=== PATIENT | female | born 1990 | race Caucasian/White ===

== ENCOUNTER 2017-08-30 22:56 | Inpatient (IN) | payer OTHER ==
[~2017-08-30] VITALS: Ht 180.3 cm; Wt 54.4 kg
[2017-08-30] MEDS ORDERED: IBUPROFEN 600 MG TABLET PO PRN (23:00)
[2017-08-30] MEDS ORDERED: CLONIDINE HCL 0.1 MG TABLET PO PRN (23:00)
[2017-08-30] MEDS ORDERED: LORAZEPAM 2 MG/1 ML VIAL IM PRN (23:00)
[2017-08-30] MEDS ORDERED: MAGNESIUM HYDROXIDE 30 ML LIQUID UDC PO PRN (23:00)
[2017-08-30] MEDS ORDERED: LOPERAMIDE HCL 2 MG CAPSULE PO PRN ×2 (23:00)
[2017-08-30] MEDS ORDERED: diphenhydrAMINE 50 MG CAPSULE PO PRN (23:00)
[2017-08-30] MEDS ORDERED: MAG HYDROX/AL HYDROX/SIMETH 30 ML LIQUID UDC PO PRN (23:00)
[2017-08-30] MEDS ORDERED: ACETAMINOPHEN 325 MG TABLET PO PRN (23:00)
[2017-08-30] MEDS ORDERED: THIAMINE HCL 200 MG/2 ML VIAL IM ONE (23:00)
[2017-08-30] MEDS ORDERED: LORAZEPAM 1 MG TABLET PO PRN (23:00)
[2017-08-30] MEDS ORDERED: ONDANSETRON 4 MG/2 ML VIAL IM PRN (23:00)
[2017-08-30] MEDS ORDERED: MIRALAX 17 GM POWD.PACK PO PRN (23:00)
[2017-08-30 23:20] VITALS: BP 109/62
--- NOTE | 2017-08-30 23:20 | NUR ---
INTAKE ASSESSMENT PATIENT ALERT AND ORIENTED X 4. SPEECH IS CLEAR AND ANSWER QUESTIONS APPROPRIATELY. DENIES ANY PAIN. VS BP- 109/62 T-97.5 P-95 R-18 SpO2-97% IN RA. PATIENT DOES NOT HAVE ALLERGY. NO SEIZURE HISTORY. PATIENT STATES SHE'S HERE FOR ALCOHOL. SHE ADMITTED USING COCAINE FOR 2 DAYS. WILL CONTINUE ADMISSION ON 3RD FLOOR.
--- NOTE | 2017-08-30 23:25 | NUR ---
ADMISSION NOTE PATIENT IS A 26 YEAR OLD FEMALE WHO PRESENTS TO [facility] FOR SUPERVISED WITHDRAWAL FROM ETOH DEPENDENCE. BODY CHECK DONE, PATIENT HAD SCRATCH ON RIGHT CHIN, NO BLEEDING OTHERWISE SKIN CLEAR AND INTACT. LUNGS CLEAR AND ABDOMEN SOFT AND NON -DISTENDED. BOWEL SOUNDS CLEAR ON ALL QUADRANT. PATIENT HAD BOWEL MOVEMENT TODAY. NO DIFFICULTY WHILE URINATING. PATIENT REQUESTED TO BE FULL CODE AND ON REGULAR DIET. PATIENT IS UNEMPLOYED, LIVES ALONE WITH HER FAMILY HER SUPPORT SYSTEM. PATIENT'S PCP IS DR. AMARO IN [place]. PATIENT DENIES PAST MEDICAL HISTORY. PATIENT STATES SHE RELAPSED 2 WEEKS AGO. PATIENT'S DRUG OF CHOICE ARE: 1.ALCOHOL- STARTED DRINKING AT AGE 14. PATIENT ALTERNATES BETWEEN 12 BOTTLES OF BEER OR 2 BOTTLES OF WINE (RED AND WHITE ) OR 2 BOTTLES OF VODKA DAILY FOR 2 WEEKS. LAST DRINK WAS 1 BOTTLE OF [place] BEFORE ADMISSION 2.COCAINE- STARTED USING FOR 2 DAYS. PATIENT STATES SHE HAD 1-2 LINES . SHE HAD IT LAST NIGHT AND BEFORE ADMISSION. TREATMENT HISTORY: 1. [facility]-A MONTH 2.[facility] - 2 WEEKS 3.[facility]- LAST NIGHT 08/29/17- GOT SICK USING COCAINE FOR THE FIRST TIME PATIENT REPORTS NAUSEA NO EMESIS, APPEARS TO BE ANXIOUS. CIWA 4. PATIENT DENIES SI/HI. PATIENT DOES NOT HAVE HOME MEDS. PATIENT AGREED TO HAVE FLU AND PNEUMONIA VACCINE. PATIENT WAS PLACED ON FALL/SEIZURE PRECAUTION. PATIENT ORIENTED TO SURROUNDINGS AND HOW TO USE CALL LIGHT. SAFETY MEASURES IN PLACE. CALL LIGHT IN REACH. WILL CONTINUE TO MONITOR.
[2017-08-30 23:58] LABS: *URINE HCG, QUAL NEGATIVE (NEGATIVE)
[2017-08-31] MEDS: ONDANSETRON ODT 4 MG TAB.RAPDIS SL PRN ×2 (00:05→11:06)
--- NOTE | 2017-08-31 00:05 | NUR ---
PRN ZOFRAN ADMINISTRATION PATIENT C/O NAUSEA .BUT NO EMESIS. PRN ZOFRAN GIVEN.WILL MONITOR FOR EFFECTIVENESS
[2017-08-31 00:09] LABS: BASOPHILS % (AUTO) 0.3 % (0.0-2.0); EOSINOPHILS % (AUTO) 0.7 % (0.0-7.0); HEMATOCRIT 41.9 % (37-47); HEMOGLOBIN 14.5 G/DL (12.0-16.0); LYMPHOCYTES # (AUTO) 3.2 K/UL (0.8-4.8); LYMPHOCYTES % (AUTO) 57.1 % (20.5-51.5); MEAN CORPUSCULAR HEMOGLOBIN 32.3 UUG (27.0-31.0); MEAN CORPUSCULAR HGB CONC 35 g/dL (32.0-37.0); MEAN CORPUSCULAR VOLUME 93.6 FL (81.0-99.0); MONOCYTES # (AUTO) 0.3 K/UL (0.1-1.30); MONOCYTES % (AUTO) 5.6 % (0.0-11.0); NEUTROPHILS % (AUTO) 36.3 % (38.5-71.5); PLATELET COUNT (AUTO) 162 K/UL (150-450); RED BLOOD CELL COUNT(AUTO) 4.48 MIL/UL (4.2-5.4); WHITE BLOOD COUNT (AUTO) 5.5 K/UL (4.0-11.2)
[2017-08-31 00:14] LABS: *AMPHETAMINE, URINE NEGATIVE (NEGATIVE); *BARBITURATE, URINE NEGATIVE (NEGATIVE); *CANNABINOID, URINE NEGATIVE (NEGATIVE); *COCCAINE, URINE POSITIVE (NEGATIVE); *OPIATE, URINE NEGATIVE (NEGATIVE); *PHENCYCLIDINE SCREEN,URINE NEGATIVE (NEGATIVE)
[2017-08-31] MEDS ORDERED: ONDANSETRON ODT 4 MG TAB.RAPDIS ONE (00:17)
--- NOTE | 2017-08-31 00:35 | NUR ---
PRN ZOFRAN RE-ASSESSMENT PATIENT STATES ZOFRAN EFFECTIVE. NAUSEA CEASED. WILL CONTINUE TO MONITOR
--- NOTE | 2017-08-31 00:44 | NUR ---
THIAMINE IM ADMINISTRATION THIAMINE IM GIVEN ON LEFT DELTOID, TOLERATED WELL, NO ADVERSE REACTION.
[2017-08-31] MEDS ORDERED: THIAMINE HCL 200 MG/2 ML VIAL ONE (00:51)
[2017-08-31 00:54] LABS: BILIRUBIN,TOTAL 0.5 mg/dL (0.2-1.0); CREATININE 0.8 mg/dL (0.6-1.3); MAGNESIUM 1.9 mg/dL (1.8-2.4); POTASSIUM 4.1 mmol/L (3.5-5.1); TOTAL PROTEIN, SERUM 8.5 g/dL (6.4-8.2)
[2017-08-31 04:00] VITALS: BP_SYST 94; BP_SYST 95; BP_DIAS 61; BP_DIAS 62
[2017-08-31] MEDS: LORAZEPAM 1 MG TABLET PO PRN ×2 (04:10→11:06)
--- NOTE | 2017-08-31 04:10 | NUR ---
PRN ATIVAN ADMINISTRATION PATIENT C/O ANXIETY, NOTED RESTLESS, TREMULOUS, SWEATING . CIWA7. PRN ATIVAN GIVEN. WILL MONITOR FOR EFFECTIVENESS
[2017-08-31] MEDS ORDERED: LORAZEPAM 1 MG TABLET ONE (04:23)
--- NOTE | 2017-08-31 05:10 | NUR ---
PRN ATIVAN RE-ASSESSMENT PATIENT STATES ATIVAN HELPFUL. PATIENT LESS ANXIOUS. WILL CONTINUE TO MONITOR CIWA IS NOW 3. WILL CONTINUE TO MONITOR.
--- NOTE | 2017-08-31 07:15 | NUR ---
Start of Shift Endorsement received from nightshift nurse. Pt is a 26 y/o female admitted for alcohol dependence. Pt has not been placed on a taper at this time. Pt's symptoms will be managed by PRN medications until farther evaluation by Dr. Bowen. Pt received PRN Ativan at 0440 for CIWA 7. MRSA was performed upon admission. Pt is tolerating the detox and moderately withdrawing AEB CIWA 3. Pt reports sleeping 6 hours. PT is alert and oriented x4. Pt is in STABLE condition at this time. Remains compliant with medication and diet regimen. All needs have been met, All safety measures in place per hospital policy. Bed in lowest position, side rails up x2, call-light within reach. Will continue to monitor
--- NOTE | 2017-08-31 07:18 | NUR ---
END OF SHIFT NOTE PATIENT IS A 26 YEAR OLD FEMALE NEWLY ADMITTED FOR ETOH DEPENDENCE. PATIENT WAS GIVEN PRN ZOFRAN AND ATIVAN FOR CIWA 7, EFFECTIVE , CIWA WENT DOWN TO 3. . THIAMINE IM GIVEN ON LEFT DELTOID. SLEPT 6 HOURS. FLUID INTAKE 500 ML. VOIDED X 1. NO BM. ON FALL/SEIZURE PRECAUTION. SAFETY MEASURES IN PLACE. CALL LIGHT IN REACH. WILL CONTINUE TO MONITOR. LAST CIWA .
[2017-08-31 08:00] VITALS: BP 92/56
[2017-08-31] MEDS ORDERED: PNEUMOCOCCAL 23-VAL P-SAC VAC 0.5 ML VIAL IM ONE (09:00)
[2017-08-31] MEDS ORDERED: INFLUENZA VACCINE 2017-2018 0.5 ML DISP.SYRIN IM ONE (09:00)
[2017-08-31] MEDS: MULTIVITAMINS,THERAPEUTIC TABLET PO SCH (09:00)
[2017-08-31] MEDS: FOLIC ACID 1 MG TABLET PO SCH (09:00)
[2017-08-31] MEDS: THIAMINE HCL 100 MG TABLET PO SCH (09:00)
[2017-08-31] MEDS ORDERED: TUBERCULIN,PURIF.PROT.DERIV. 5 TU/0.1 ML TEST ID ONE (09:00)
--- NOTE | 2017-08-31 11:06 | NUR ---
PRN Medications Administered PRN Ativan 1mg and Zofran 4mg for CIWA 9.
--- NOTE | 2017-08-31 11:50 | NUR ---
Medication Re-assessment Medication was effective AEB CIWA 4 at this time.
[2017-08-31 12:00] VITALS: BP 93/62
[2017-08-31] MEDS: LORAZEPAM 1 MG TABLET PO SCH ×3 (13:06→21:00)
--- NOTE | 2017-08-31 15:20 | NUR ---
PRN ZOFRAN Administered PRN Zofran 4mg IM, pt reports moderate to severe nausea.
--- NOTE | 2017-08-31 15:45 | NUR ---
RE-Assessment PT reports medication was effective. reports nausea has ceased.
[2017-08-31 16:00] VITALS: BP 96/61
--- NOTE | 2017-08-31 19:12 | NUR ---
End of Shift Endorsement given to nightshift nurse. Pt is a 26 y/o female admitted for alcohol dependence. Pt has been placed on a 5 day Ativan taper. Pt is moderately withdrawing AEB CIWA 10 at 1600. PT received PRN Zofran 4mg PO and Zofran 4mg IM for reported nausea. PT did not participate in groups or activities. PT remained in her room and spent most of the day sleeping. Breathing is even and unlabored. Responsive to name and touch. Encouraged pt to drink more fluids and educated pt on diet regimen. Intake: 1500ml, Void x2, BM x0. PT is alert and oriented x4. Pt is in STABLE condition at this time. Remains compliant with medication and diet regimen. All needs have been met, All safety measures in place per hospital policy. Bed in lowest position, side rails up x2, call-light within reach. Will continue to monitor
--- NOTE | 2017-08-31 19:30 | NUR ---
Start of Shift note Patient is a 26 year old female admitted on 08-30-17 for Alcohol detox. Patient is a full code, regular diet, with NKA. Patient on fall and seizure precautions. She was started on a five day Ativan taper. Vital signs remain stable. Last CIWA 10 at 1600. Patient with periods of nausea during day. Currently in bed resting with no physical complaints offered. Tolerating fluids. Appetite poor. Safety precautions in place. Bed locked and in lowest position. Two side rails up for safety. Report received from AM nurse.
[2017-08-31 20:00] VITALS: BP 105/76
[2017-09-01] VITALS: BP 92/54
--- NOTE | 2017-09-01 04:00 | NUR ---
CIWA DEFERRED/VITAL SIGNS REFUSED PATIENT REFUSED 0400 VITAL SIGNS 0400 CIWA DEFERRED FOR SLEEP
--- NOTE | 2017-09-01 06:57 | NUR ---
End of shift Patient is a 26 year old female admitted on 08-30-17 for Alcohol detox. Patient is a full code, regular diet, with NKA. Patient on fall and seizure precautions. She is on a five day Ativan taper. Vital signs at 2000 BP 105/76, P 67, R 16, SPO2 98% on RA, T 97.8. CIWA 6. Tolerating fluids. Appetite fair. VS at 0000 BP 92/54, P 92, R 16, SPO2 99% on RA, T 98.1. CIWA 3. Slept a total of 9 hours. Intake 1000 ml output 2 voids. Safety precautions in place. Bed locked and in lowest position. Two side rails up for safety. Report given to AM nurse.
--- NOTE | 2017-09-01 07:00 | NUR ---
Start of Shift Notes: Received report from night nurse. Patient is in his room. Alert and verbally responsive. Oriented x 4. Able to make needs known. Respirations even and unlabored. No SOB noted. Skin warm and dry to touch. Abdomen soft and non-distended with (+) BS in all 4 quadrants. No complains of N/V/D or constipation noted. Bladder non-distended. No complains of dysuria. Ambulatory ad vladislav with steady gait. Patient is a 26 year old female admitted for ETOH dependence who was placed on a 5-day Ativan taper as ordered. No adverse reactions noted. Prior to admission, patient was using 12 beers, wine or vodka alternately daily x 2 weeks, and 1-2 lines of cocaine. Denies any past medical hx. FULL CODE. Regular diet. On fall and seizure precautions. NKA. Educated patient on the current plan of care and the medication regimen. Encouraged oral fluid intake and encouraged group participation to learn new skills to prevent relapse. On fall and seizure precautions. Will continue to monitor.
[2017-09-01 07:07] LABS: HEPATITIS B SURFACE AG Negative (Negative)
[2017-09-01 08:00] VITALS: BP 106/65
[2017-09-01] MEDS: THIAMINE HCL 100 MG TABLET PO SCH (09:00)
[2017-09-01] MEDS: FOLIC ACID 1 MG TABLET PO SCH (09:00)
[2017-09-01] MEDS: MULTIVITAMINS,THERAPEUTIC TABLET PO SCH (09:00)
[2017-09-01] MEDS ORDERED: LORAZEPAM 1 MG TABLET PO SCH (09:00)
--- NOTE | 2017-09-01 09:13 | NUR ---
All 0900 meds not administered: Patient verbalized that she will not take any medications today due to her wanting to leave. Educated patient on the risk and benefits but patient still refused to take any medications. Per patient, she will wait for MD Bowen to speak to her. Awaiting for MD to arrive the unit.
--- NOTE | 2017-09-01 10:05 | NUR ---
Therapist prompted client about group times. Client stated she is not attending groups today because she plans on leaving today.
--- NOTE | 2017-09-01 10:15 | NUR ---
AMA NOTE: Pt left AMA, Pt refused to comply with treatment. Pt educated about the risks and consequences of leaving AMA, pt verbalized understanding but was adamant about leaving. Multiple staff members including doctors, case specialist and nurses attempted to reason with pt without any success. VS WNL, skin intact pt denied any suicidal or homicidal ideations. Pt's psychiatrist and MD were notified and aware. Pt was given a list of community resources , AMA forms explained and signed. all belongings including her toiletries were returned to Pt. Patient escorted off the unit by female FORMULATION TECHNICIAN at 1015.
[2017-09-02] MEDS ORDERED: LORAZEPAM 1 MG TABLET PO SCH ×2 (09:00)
[2017-09-03] MEDS ORDERED: LORAZEPAM 1 MG TABLET PO SCH (09:00)
== END 2017-09-01 12:15 | disposition left against medical advice (07) | DRG 894 ==
LOC: SRC 22:56
PROVIDERS: ADMIT Internal Medicine; ATTEND Internal Medicine
PROC: HZ2ZZZZ Detoxification Services for Substance Abuse Treatment (ICD-10-PCS; principal; 2017-08-30)
PROC: HZ31ZZZ Individual Counseling for Substance Abuse Treatment, Behavioral (ICD-10-PCS; 2017-09-01)
DX: F10.232 Alcohol dependence with withdrawal with perceptual disturbance (principal); K70.10 Alcoholic hepatitis without ascites; F14.10 Cocaine abuse, uncomplicated; Y90.9 Presence of alcohol in blood, level not specified; F17.210 Nicotine dependence, cigarettes, uncomplicated; R73.9 Hyperglycemia, unspecified
CPT/HCPCS: 36415; 80307; 80353; 83735; 84703; 85025; 86592; 86705; 86803; 87340; 87806; G0480; J2405; J3411; Q0162